=== PATIENT | male | born 1980 | race Two or more races ===

== ENCOUNTER 2021-06-28 11:30 | Emergency (ER) | payer MEDICAID, OTHER ==
[~2021-06-28] VITALS: Ht 177.8 cm; Wt 74.8 kg
[2021-06-28] MEDS ORDERED: SODIUM CHLORIDE 0.9% 1,000 ML IVB ONE (12:15)
[2021-06-28 13:33] LABS: Basophils # (auto) 0.1 10 ^3/uL (0-0.2); Basophils % (auto) 1.1 % (0.0-2.0); Eosinophils # (auto) 0.1 10 ^3/uL (0-0.8); Eosinophils % (auto) 0.7 % (0.0-7.0); Hematocrit 46.7 % (41.0-53.0); Hemoglobin 15.7 g/dL (13.5-17.5); Lymphocytes # (auto) 0.7 10 ^3/uL (0.4-5.4); Lymphocytes % (auto) 5.7 % (10.0-50.0); Mean Corpuscular Hemoglobin 30.9 pg (28.0-32.0); Mean Corpuscular Hgb Conc. 33.6 g/dL (32.0-36.0); Mean Corpuscular Volume 91.8 fL (80.0-100.0); Monocytes # (auto) 0.4 10 ^3/uL (0-1.3); Monocytes % (auto) 3.7 % (0.0-12.0); Neutrophils # (auto) 10.5 10 ^3/uL (1.6-8.6); Neutrophils % (auto) 88.8 % (37.0-80.0); Red Blood Cells 5.09 10^6/uL (4.5-5.90); Red Cell Distribution Width 16.1 % (11.8-14.3); White Blood Cell 11.8 10^3/uL (4.4-10.8)
[2021-06-28 13:59] LABS: Magnesium 2.4 mg/dL (1.6-2.6)
[2021-06-28 15:19] LABS: Amphetamine Screen, Urine POSITIVE (NEGATIVE); Barbiturate Scree,Urine NEGATIVE (NEGATIVE); Benzodiazephine Screen, Urine NEGATIVE (NEGATIVE); Cannabinoid Screen, Urine NEGATIVE (NEGATIVE); Cocaine Screen, Urine NEGATIVE (NEGATIVE); Opiate Scree,Urine NEGATIVE (NEGATIVE); Phencyclidine Screen, Urine NEGATIVE (NEGATIVE)
[2021-06-28 16:13] LABS: Albumin 3.8 g/dL (3.4-5.0); Calcium 8.8 mg/dL (8.5-10.1); Potassium 3.6 mmol/L (3.5-5.1)
[2021-06-28 16:17] LABS: BUN/Creatinine Ratio 16.9; Bilirubin, Total 0.9 mg/dL (0.2-1.0); Total Protein 7.6 g/dL (6.4-8.2)
[2021-06-28 23:00] VITALS: BP 132/80
== END 2021-06-28 23:25 | disposition admitted as inpatient to this hospital (09) ==
LOC: ER 11:30 → EDBD 11:30 → ER 23:25
DX: R07.89 Other chest pain (principal); F15.10 Other stimulant abuse, uncomplicated; F17.210 Nicotine dependence, cigarettes, uncomplicated; F12.10 Cannabis abuse, uncomplicated; Z20.822 Contact with and (suspected) exposure to COVID-19
CPT/HCPCS: 36415; 70450; 80053; 80307; 80320; 83735; 84484; 85025; 87426; 93005; 96360; 99285; J7030